=== PATIENT | female | born 1995 | race Caucasian/White ===

== ENCOUNTER 2017-08-22 14:33 | Emergency (ER) | payer OTHER ==
--- NOTE | 2017-08-22 16:10 | ED ---
Throat Pain/Nasal Congestion - HPI Summary HPI Summary: Dental pain Rt upper jaw. Nerve repaired Wednesday w/ temp filling then pain returned . Has been trying advil w/o relief. Has some heat and swelling of cheek - pain worse w/ talking, chewing. Denies fever, chills, N/V/D, neck pain, dysphagia, otalgia. Has been taking PCN since. - History of Current Complaint Chief Complaint: EDDentalPain Time Seen by Provider: 08/22/17 15:05 Hx Obtained From: Patient - Allergies/Home Medications Allergies/Adverse Reactions: Allergies Allergy/AdvReac Type Severity Reaction Status Date / Time No Known Allergies Allergy Verified 08/22/17 14:54 PMH/Surg Hx/FS Hx/Imm Hx Previously Healthy: Yes Endocrine/Hematology History: Reports: Other Endocrine/Hematological Disorders - Diet controlled DM Denies: Hx Diabetes Cardiovascular History: Denies: Hx Hypertension, Hx Pacemaker/ICD Respiratory History: Denies: Hx Asthma History: Reports: Other Problems/Disorders - PCOS Denies: Hx Renal Disease Sensory History: Denies: Hx Hearing Aid Psychiatric History: Denies: Hx Panic Disorder - Surgical History Surgery Procedure, Year, and Place: CYST REMOVED FROM LEFT WRIST 2016 Infectious Disease History: No Infectious Disease History: Denies: Traveled Outside the [place] in Last 30 Days - Family History Known Family History: Positive: Cardiac Disease - paternal, Hypertension - paternal, Diabetes - maternal - Social History Alcohol Use: None Substance Use Type: Reports: None Hx Tobacco Use: No Smoking Status (MU): Never Smoked Tobacco Review of Systems Constitutional: Negative Negative: Fever, Chills, Fatigue Eyes: Negative Negative: Photophobia, Blurred Vision, Diplopia, Drainage, Erythema Positive: Dental Pain. Negative: Epistaxis, Sore Throat, Ear Ache, Nasal Discharge Cardiovascular: Negative Respiratory: Negative Negative: Shortness Of Breath Gastrointestinal: Negative Negative: Abdominal Pain, Vomiting, Diarrhea, Nausea Positive: no symptoms reported Musculoskeletal: Negative Skin: Negative Neurological: Negative Psychological: Normal All Other Systems Reviewed And Are Negative: Yes Physical Exam Triage Information Reviewed: Yes Vital Signs On Initial Exam: Initial Vitals Temp Pulse Resp BP Pulse Ox 98.3 F 63 15 145/71 98 08/22/17 14:50 08/22/17 14:50 08/22/17 14:50 08/22/17 14:50 08/22/17 14:50 Vital Signs Reviewed: Yes Appearance: Positive: Well-Appearing, No Pain Distress, Obese Skin: Positive: Warm - no erythema, no feng edema, no lesions over affected area of face, Skin Color Reflects Adequate Perfusion, Dry Head/Face: Positive: Normal Head/Face Inspection Eyes: Positive: Normal, EOMI - no pain w/ ocular movements, Conjunctiva Clear. Negative: Conjunctiva Inflammed, Discharge ENT: Positive: Normal ENT inspection, Hearing grossly normal, Pharynx normal. Negative: Nasal congestion, Nasal drainage Dental: Positive: Other - buccal mucosa and tissue pink about the Rt posterior molar w/ mild edema/bogginess compared to Lt side of inner mouth/cheek - no erythema, no pustules, no lesions, no drainage observed however tissue is TTP here Neck: Positive: Supple, Nontender, No Lymphadenopathy Respiratory/Lung Sounds: Positive: Clear to Auscultation, Breath Sounds Present. Negative: Stridor, Wheezes Cardiovascular: Positive: Normal, RRR Musculoskeletal: Positive: Normal, Strength/ROM Intact Neurological: Positive: Normal, Sensory/Motor Intact, Alert, Oriented to Person Place, Time, CN Intact II-III Psychiatric: Positive: Normal Diagnostics - Vital Signs Vital Signs Temp Pulse Resp BP Pulse Ox 08/22/17 14:50 98.3 F 63 15 145/71 98 - Laboratory Lab Statement: Any lab studies that have been ordered have been reviewed, and results considered in the medical decision making process. EENT Course/Dx - Course Course Of Treatment: Dental pain w/ recent procedure - pain relieved for 2 days then returned - has been trying to manage on her own with NSAID however no improvement. - Diagnoses Provider Diagnoses: Pain, dental Discharge - Discharge Plan Condition: Stable Disposition: HOME Prescriptions: HYDROcodone/ACETAMIN 5-325 MG* [Drexel 5-325 TAB*] 1 tab PO Q6H PRN #12 tab MDD 4 PRN Reason: Pain Metronidazole [Flagyl 500 MG TAB] 500 mg PO TID #21 tab Patient Education Materials: Dental Abscess (ED) Referrals: Michelle Amato MD [Primary Care Provider] - Additional Instructions: Continue Penicillin by mouth but add flagyl (new antibiotic) - complete course unless dentist advises otherwise. Keep appointment with dentist. You may also continue advil 800mg every 8 hours with food for pain - may use norco if pain is poorly controlled as well *If worse or develop facial swelling, trouble breathing or swallowing, return to ED
[2017-08-22 17:11] VITALS: BP 126/70
== END 2017-08-22 16:45 | disposition home or self-care (01) ==
LOC: ED 14:33
DX: K08.89 Other specified disorders of teeth and supporting structures (principal)
CPT/HCPCS: 99282

== ENCOUNTER 2017-08-29 16:35 | Emergency (ER) | payer OTHER ==
[2017-08-29] MEDS ORDERED: Ibuprofen TAB* 600 MG PO ONE (19:08)
--- NOTE | 2017-08-29 19:12 | UC ---
FLU HPI - HPI Summary HPI Summary: 2 DAYS OF SUBJECTIVE FEVER, CHILLS, FATIGUE, NAUSEA, LOOSE STOOLS, MARIA AND MYALGIAS. NO FLU SHOT THIS SEASON. - History of Current Complaint Chief Complaint: UCGeneralIllness Stated Complaint: COUGH, CONGESTION Time Seen by Provider: 08/29/17 18:56 Hx Obtained From: Patient Hx Last Menstrual Period: 3 weeks Onset/Duration: Gradual Onset, Lasting Days, Still Present Severity Currently: Moderate Severity Initially: Moderate Pain Intensity: 7 Pain Scale Used: 0-10 Numeric Associated Signs & Symptoms: Positive: Fever, Myalgia, Cough, Sore Throat, Nasal Congestion, Headache, Diarrhea - Allergy/Home Medications Allergies/Adverse Reactions: Allergies Allergy/AdvReac Type Severity Reaction Status Date / Time No Known Allergies Allergy Verified 08/29/17 17:38 Home Medications: Home Medications Sertraline* [Zoloft*] 50 mg PO DAILY 08/29/17 [History Confirmed 08/29/17] PMH/Surg Hx/FS Hx/Imm Hx Previously Healthy: Yes - Surgical History Surgical History: Yes Surgery Procedure, Year, and Place: CYST REMOVED FROM LEFT WRIST 2015 - Family History Known Family History: Positive: Cardiac Disease - paternal, Hypertension - paternal, Diabetes - maternal - Social History Alcohol Use: None Substance Use Type: None Smoking Status (MU): Never Smoked Tobacco Review of Systems Constitutional: Fever, Chills, Fatigue ENT: Sore Throat, Ear Ache, Nasal Discharge Respiratory: Cough Cardiovascular: Negative Gastrointestinal: Diarrhea, Nausea Musculoskeletal: Myalgia Neurological: Headache All Other Systems Reviewed And Are Negative: Yes Physical Exam Triage Information Reviewed: Yes Appearance: No Pain Distress, Well-Nourished, Ill-Appearing - MOD Vital Signs: Initial Vital Signs Temp 100.6 F 08/29/17 17:33 Pulse 93 08/29/17 17:33 Resp 18 08/29/17 17:33 BP 135/76 08/29/17 17:33 Pulse Ox 94 08/29/17 17:33 Vital Signs Reviewed: Yes Eyes: Positive: Conjunctiva Clear ENT: Positive: Hearing grossly normal, Pharynx normal, TMs normal Neck: Positive: Supple, Nontender, No Lymphadenopathy Respiratory Exam: Normal Cardiovascular: Positive: Tachycardia Abdomen Description: Positive: Nontender, Soft Musculoskeletal: Positive: No Edema Neurological: Positive: Alert Psychological: Positive: Age Appropriate Behavior Skin: Negative: rashes Diagnostics - Laboratory Diagnostic Studies Completed/Ordered: SWAB POSITIVE INFLUENZA A Flu Course/Dx - Differential Dx/Diagnosis Provider Diagnoses: INFLUENZA A Discharge - Discharge Plan Condition: Stable Disposition: HOME Prescriptions: Oseltamivir CAP* [Tamiflu CAP*] 75 mg PO BID #10 cap Patient Education Materials: Influenza (ED) Forms: *Work Release Referrals: Michelle Amato MD [Primary Care Provider] - If Needed Additional Instructions: SWAB POSITIVE FOR INFLUENZA A. TAMIFLU TWICE DAILY FOR 5 DAYS. OTC MEDS NEEDED FOR FEVER, BODY ACHES. STAY WELL HYDRATED AND RESTED. SEEK FOLLOW-UP IF YOU ARE NOT IMPROVING EXPECTED.
[2017-08-29 19:16] VITALS: BP 145/63
== END 2017-08-29 19:56 | disposition home or self-care (01) ==
LOC: UCEAST 16:35
DX: J09.X2 Influenza due to identified novel influenza A virus with other respiratory manifestations (principal)
CPT/HCPCS: 87502; 99212; A9270-GY; G0463

== ENCOUNTER 2018-01-19 08:07 | Emergency (ER) | payer OTHER ==
--- NOTE | 2018-01-19 10:08 | UC ---
Skin Complaint HPI - HPI Summary HPI Summary: Developed painful irritated taste buds on the tip of her tongue about 2 weeks ago that has been persistent. She denies any fever, nausea or trauma to the area. No history of oral or genital herpes. She denies any high risk sexual activity. - History of Current Complaint Chief Complaint: UCGI Time Seen by Provider: 01/19/18 09:49 Stated Complaint: MOUTH PAIN Hx Obtained From: Patient Hx Last Menstrual Period: 3 weeks Onset/Duration: Sudden Onset, Lasting Weeks, Still Present Onset Severity: Moderate Current Severity: Moderate Pain Intensity: 8 Pain Scale Used: 0-10 Numeric Character: Pain, Raised Aggravating Factor(s): Touch Alleviating Factor(s): Nothing Associated Signs & Symptoms: Positive: Negative - Allergy/Home Medications Allergies/Adverse Reactions: Allergies Allergy/AdvReac Type Severity Reaction Status Date / Time No Known Allergies Allergy Verified 01/19/18 08:16 Home Medications: Home Medications Fluoxetine HCl [Prozac] 40 mg PO 01/19/18 [History] Review of Systems Constitutional: Negative Skin: Other - TENDER, ENLARGED TASTEBUDS Respiratory: Negative Cardiovascular: Negative Gastrointestinal: Negative All Other Systems Reviewed And Are Negative: Yes PMH/Surg Hx/FS Hx/Imm Hx Psychological History: Anxiety, Depression - Surgical History Surgical History: Yes Surgery Procedure, Year, and Place: CYST REMOVED FROM LEFT WRIST 2016 - Family History Known Family History: Positive: Cardiac Disease - paternal, Hypertension - paternal, Diabetes - maternal - Social History Alcohol Use: None Substance Use Type: None Smoking Status (MU): Never Smoked Tobacco Physical Exam Triage Information Reviewed: Yes Appearance: Well-Appearing, No Pain Distress, Well-Nourished Vital Signs: Initial Vital Signs Temp 98.3 F 01/19/18 08:10 Pulse 79 01/19/18 08:10 Resp 18 01/19/18 08:10 BP 122/81 01/19/18 08:10 Pulse Ox 100 01/19/18 08:10 Vital Signs Reviewed: Yes Eyes: Positive: Conjunctiva Clear ENT: Positive: Hearing grossly normal, Pharynx normal, Other - TONGUE WITH TENDER, IRRITATED FUNGIFORM PAPILLAE Neck: Positive: Supple, Nontender, No Lymphadenopathy Respiratory: Positive: No respiratory distress, No accessory muscle use Cardiovascular: Positive: Pulses Normal Abdomen Description: Positive: Soft Musculoskeletal: Positive: No Edema Neurological: Positive: Alert Psychological: Positive: Age Appropriate Behavior Skin: Negative: rashes Course/Dx - Diagnoses Provider Diagnoses: TRANSIENT LINGUAL PAPILLITIS Discharge - Sign-Out/Discharge Documenting (check all that apply): Discharge/Admit/Transfer - Discharge Plan Condition: Stable Disposition: HOME Prescriptions: Chlorhexidine MW 0.12% 473ML* [Peridex Mouth Wash 0.12%*] 15 ml SWISH SPIT BID # 1 bottle Referrals: Michelle Amato MD [Primary Care Provider] - If Needed Additional Instructions: POSSIBLE TRANSIENT LINGUAL PAPILLITIS. SWAB TAKEN TO RULE OUT HERPES. RINSE WITH WATER AFTER EATING AND AVOID ACIDIC, SPICY, IRRITATING FOODS. USE THE ANTISEPTIC MOUTH RINSE TWICE DAILY FOR A FEW DAYS TO SEE IF THAT HELPS. CALL DERMATOLOGY TODAY FOR A FOLLOW-UP APPOINTMENT. [place]. CARMEN VALERIO [facility], [facility] [address]; [address] [place] [address] Dr. Candi Grissomister Address: [address] [place] [address] [address] [place] [address] DR[facility] [address] [place] [address] [facility] Merline Espinal DERMATOLOGY IN [place] DR. CLAYTON JEFFERY [phone] - Billing Disposition and Condition Condition: STABLE Disposition: Home
[2018-01-19 10:23] VITALS: BP 151/70
== END 2018-01-19 10:21 | disposition home or self-care (01) ==
LOC: UCEAST 08:07
DX: K14.0 Glossitis (principal); F41.9 Anxiety disorder, unspecified; F32.9 Major depressive disorder, single episode, unspecified; Z79.899 Other long term (current) drug therapy
CPT/HCPCS: 87529; 87798; 99212; G0463

== ENCOUNTER 2018-07-03 22:09 | Emergency (ER) | payer OTHER ==
--- NOTE | 2018-07-03 23:40 | ED ---
Lower Extremity - HPI Summary HPI Summary: This patient is a 23 year old F presenting to [facility] with a chief complaint of right knee pain that has gotten worse. Pt states that she fell on her knee two weeks ago, saw PCP, received xray, and diagnosed with a contusion. In her return instructions she was told to return with worsening pain and she states her pain has increased. The patient rates the pain 6/10 in severity and states it radiates down to the ankle. She states her knee gives out when she walks. She is requesting immobilizer - History of Current Complaint Chief Complaint: EDExtremityLower Stated Complaint: KNEE PAIN Time Seen by Provider: 07/03/18 23:34 Hx Obtained From: Patient Hx Last Menstrual Period: 3 weeks Mechanism Of Injury: Fall From A Standing Position Onset of Pain: Immediate Onset/Duration: Weeks Severity Initially: Mild Severity Currently: Moderate Pain Intensity: 6 Pain Scale Used: 0-10 Numeric Timing: Constant Location: Is Discrete @ - R knee Associated Signs And Symptoms: Negative: Swelling, Fever Able to Bear Weight: Yes - Allergies/Home Medications Allergies/Adverse Reactions: Allergies Allergy/AdvReac Type Severity Reaction Status Date / Time No Known Allergies Allergy Verified 01/19/18 08:16 PMH/Surg Hx/FS Hx/Imm Hx Endocrine/Hematology History: Reports: Other Endocrine/Hematological Disorders - Diet controlled DM Denies: Hx Diabetes Cardiovascular History: Denies: Hx Hypertension, Hx Pacemaker/ICD Respiratory History: Denies: Hx Asthma History: Reports: Other Problems/Disorders - PCOS Denies: Hx Renal Disease Sensory History: Denies: Hx Hearing Aid Psychiatric History: Denies: Hx Panic Disorder - Surgical History Surgery Procedure, Year, and Place: CYST REMOVED FROM LEFT WRIST 2016 Infectious Disease History: No Infectious Disease History: Denies: Traveled Outside the [place] in Last 30 Days - Family History Known Family History: Positive: Cardiac Disease - paternal, Hypertension - paternal, Diabetes - maternal - Social History Alcohol Use: None Substance Use Type: Reports: None Hx Tobacco Use: No Smoking Status (MU): Never Smoked Tobacco Review of Systems Negative: Fever Positive: Other - knee pain and altered gait All Other Systems Reviewed And Are Negative: Yes Physical Exam - Summary Physical Exam Summary: VITAL SIGNS: Reviewed. GENERAL: Patient is a well-developed and nourished female who is lying comfortable in the stretcher. Patient is not in any acute respiratory distress. HEAD AND FACE: No signs of trauma. No ecchymosis, hematomas or skull depressions. No sinus tenderness. EYES: PERRLA, EOMI x 2, No injected conjunctiva, no nystagmus. EARS: Hearing grossly intact. Ear canals and tympanic membranes are within normal limits. MOUTH: Oropharynx within normal limits. NECK: Supple, trachea is midline, no adenopathy, no JVD, no carotid bruit, no c- spine tenderness, neck with full ROM. CHEST: Symmetric, no tenderness at palpation LUNGS: Clear to auscultation bilaterally. No wheezing or crackles. CVS: Regular rate and rhythm, S1 and S2 present, no murmurs or gallops appreciated. ABDOMEN: Soft, non-tender. No signs of distention. No rebound no guarding, and no masses palpated. Bowel sounds are normal. EXTREMITIES: FROM in all major joints, no edema, no cyanosis or clubbing.TTP over the right lateral knee. No swelling, good ROM. NEURO: Alert and oriented x 3. No acute neurological deficits. Speech is normal and follows commands. SKIN: Dry and warm Triage Information Reviewed: Yes Vital Signs On Initial Exam: Initial Vitals Temp Pulse Resp BP Pulse Ox 98.4 F 83 20 141/88 99 07/03/18 22:11 07/03/18 22:11 07/03/18 22:11 07/03/18 22:11 07/03/18 22:11 Vital Signs Reviewed: Yes Diagnostics - Vital Signs Vital Signs Temp Pulse Resp BP Pulse Ox 07/03/18 22:11 98.4 F 83 20 141/88 99 - Laboratory Lab Statement: Any lab studies that have been ordered have been reviewed, and results considered in the medical decision making process. Lower Extremity Course/Dx - Course Assessment/Plan: This patient is a 23 year old F presenting to [facility] with a chief complaint of right knee pain that has gotten worse. Pt states that she fell on her knee two weeks ago, saw PCP, received xray, and diagnosed with a contusion. In her return instructions she was told to return with worsening pain and she states her pain has increased. The patient rates the pain 6/10 in severity and states it radiates down to the ankle. She states her knee gives out when she walks. She is requesting immobilizer. Patient will be discharged with a knee immobilizer and an ortho f/u. she also has a PCP appointment in a week. The patient is agreeable with this plan. - Diagnoses Provider Diagnoses: Knee pain Discharge - Sign-Out/Discharge Documenting (check all that apply): Patient Departure - Discharge Plan Condition: Stable Disposition: HOME Patient Education Materials: Knee Pain (ED) Referrals: Michelle Amato MD [Primary Care Provider] - Margaret Lawson MD [Medical Doctor] - As Soon As Possible Additional Instructions: RETURN TO THE EMERGENCY DEPARTMENT FOR CHANGING OR WORSENING SYMPTOMS - Attestation Statements Document Initiated by Scribe: Yes Documenting Scribe: Albert Manjarrez Provider For Whom Scribe is Documenting (Include Credential): Ann Escobar MD Scribe Attestation: IAlbert , scribed for Ann Escobar MD on 07/03/18 at 2346. Status of Scribe Document: Ready
[2018-07-04 00:54] VITALS: BP 107/66
== END 2018-07-04 00:52 | disposition home or self-care (01) ==
LOC: ED 22:09
DX: M25.561 Pain in right knee (principal); R26.89 Other abnormalities of gait and mobility
CPT/HCPCS: 99282

== ENCOUNTER 2018-07-27 11:21 | Emergency (ER) | payer OTHER ==
[2018-07-27 11:47] VITALS: BP 151/82
--- NOTE | 2018-07-27 12:46 | ED ---
Throat Pain/Nasal Congestion - HPI Summary HPI Summary: 23 yo WF presents with sore throat radiating to right ear x 2 days. Pain is sharp and worsening associated with chills. Has had many ea infections as a child. - History of Current Complaint Chief Complaint: UCGeneralIllness Time Seen by Provider: 07/27/18 11:32 Hx Obtained From: Patient Onset/Duration: Sudden Onset, Lasting Days Severity: Moderate Associated Signs And Symptoms: Positive: Negative Cough: None - Allergies/Home Medications Allergies/Adverse Reactions: Allergies Allergy/AdvReac Type Severity Reaction Status Date / Time No Known Allergies Allergy Verified 07/27/18 11:48 PMH/Surg Hx/FS Hx/Imm Hx Previously Healthy: Yes Endocrine/Hematology History: Reports: Other Endocrine/Hematological Disorders - Diet controlled DM Denies: Hx Diabetes, Hx Thyroid Disease Cardiovascular History: Denies: Hx Hypertension, Hx Pacemaker/ICD Respiratory History: Denies: Hx Asthma, Hx Chronic Obstructive Pulmonary Disease (COPD) GI History: Denies: Hx Ulcer History: Reports: Other Problems/Disorders - PCOS Denies: Hx Renal Disease Sensory History: Denies: Hx Hearing Aid Psychiatric History: Denies: Hx Panic Disorder - Surgical History Surgery Procedure, Year, and Place: CYST REMOVED FROM LEFT WRIST 2016 Infectious Disease History: Yes Infectious Disease History: Denies: Hx Hepatitis, Hx Human Immunodeficiency Virus (HIV), Traveled Outside the [place] in Last 30 Days - Family History Known Family History: Positive: Cardiac Disease - paternal, Hypertension - paternal, Diabetes - maternal - Social History Alcohol Use: Rare Substance Use Type: Reports: Marijuana Hx Tobacco Use: No Smoking Status (MU): Never Smoked Tobacco Review of Systems Positive: Chills Eyes: Negative Positive: Sore Throat, Ear Ache Cardiovascular: Negative Respiratory: Negative Gastrointestinal: Negative Genitourinary: Negative Musculoskeletal: Negative Skin: Negative Neurological: Negative Psychological: Normal All Other Systems Reviewed And Are Negative: Yes Physical Exam - Summary Physical Exam Summary: Vital Signs Reviewed: Yes Skin: Positive: Warm Head/Face: Positive: Normal Head/Face Inspection Eyes: Positive: Normal ENT: Positive: B/L Tm erythema,RIGHT post auricular LN tenderness R>L, pharyngeal erythema w/o exudates Neck: Positive: Supple Respiratory/Lung Sounds: Positive: Clear to Auscultation Cardiovascular: Positive: Normal, RRR, S1, S2 Abdomen Description: Positive: Nontender Musculoskeletal: Positive: Normal Neurological: Positive: Normal Psychiatric: Positive: Normal, Affect/Mood Appropriate Vital Signs On Initial Exam: Initial Vitals Temp Pulse Resp BP Pulse Ox 36.9 C 88 20 151/82 100 07/27/18 11:43 07/27/18 11:43 07/27/18 11:43 07/27/18 11:43 07/27/18 11:43 Diagnostics - Vital Signs Vital Signs Temp Pulse Resp BP Pulse Ox 07/27/18 11:43 36.9 C 88 20 151/82 100 - Laboratory Lab Results: Lab Results 07/27/18 Range/Units 12:06 Group A Strep Rapid Negative (Negative) Lab Statement: Any lab studies that have been ordered have been reviewed, and results considered in the medical decision making process. EENT Course/Dx - Course Assessment/Plan: otitis media- Augmentin as directed- to take if ear pain worsene in 48 hrs. pharyngitis- rapid strep neg - Diagnoses Provider Diagnoses: Middle ear infection, Pharyngitis Discharge - Sign-Out/Discharge Documenting (check all that apply): Patient Departure All imaging exams completed and their final reports reviewed: Yes - Discharge Plan Condition: Stable Disposition: HOME Prescriptions: Amoxicillin/Clavulanate TAB* [Augmentin TAB 875*] 875 mg PO BID 7 Days #14 tab Patient Education Materials: Ear Infection (ED) Referrals: Michelle Amato MD [Primary Care Provider] - - Billing Disposition and Condition Condition: STABLE Disposition: Home
== END 2018-07-27 12:56 | disposition home or self-care (01) ==
LOC: UCEAST 11:21
DX: J02.9 Acute pharyngitis, unspecified (principal); H66.91 Otitis media, unspecified, right ear
CPT/HCPCS: 87651; 99212; G0463

== ENCOUNTER 2018-10-11 21:12 | Emergency (ER) | payer OTHER ==
[2018-10-11 21:21] VITALS: BP 155/94
[2018-10-11] MEDS ORDERED: Amoxicillin PO (*) 500 MG CAP PO ONE (21:47)
--- NOTE | 2018-10-11 21:59 | UC ---
Ear Complaint HPI - HPI Summary HPI Summary: 1 week of URI symptoms. Today developed left ear pain. No drainage from the ear or hearing loss. No fever. Is also concerned because she had a free urine test at work today and was told she had blood in her urine. No dysuria or urinary frequency. Has random intermittent back pain. - History of Current Complaint Chief Complaint: UCEar Stated Complaint: SINUS CONGESTION, EAR ACHE, AND BLOOD IN URINE Time Seen by Provider: 10/11/18 21:21 Hx Obtained From: Patient Hx Last Menstrual Period: 09/19/18 Onset/Duration: Gradual Onset, Lasting Days, Still Present Severity Initially: Moderate Severity Currently: Moderate Pain Intensity: 8 Pain Scale Used: 0-10 Numeric Aggravating Factors: Nothing Alleviating Factors: Nothing Associated Signs/Symptoms: Positive: URI Symptoms. Negative: Discharge, Hearing Loss - Allergies/Home Medications Allergies/Adverse Reactions: Allergies Allergy/AdvReac Type Severity Reaction Status Date / Time No Known Allergies Allergy Verified 10/11/18 21:21 Home Medications: Home Medications ARIPiprazole TAB* [Abilify TAB*] 5 mg PO DAILY 10/11/18 [History Confirmed 07/20] Congestion Med* PRN 10/11/18 [History] Med For Sleep* PO BEDTIME 10/11/18 [History] PMH/Surg Hx/FS Hx/Imm Hx Previously Healthy: Yes - Surgical History Surgical History: Yes Surgery Procedure, Year, and Place: CYST REMOVED FROM LEFT WRIST 2015 - Family History Known Family History: Positive: Cardiac Disease - paternal, Hypertension - paternal, Diabetes - maternal - Social History Alcohol Use: Rare Substance Use Type: None Smoking Status (MU): Never Smoked Tobacco Review of Systems All Other Systems Reviewed And Are Negative: Yes Constitutional: Positive: Negative ENT: Positive: Ear Ache, Nasal Discharge Respiratory: Positive: Cough Cardiovascular: Positive: Negative Gastrointestinal: Positive: Negative Physical Exam Triage Information Reviewed: Yes Appearance: Well-Appearing, No Pain Distress, Well-Nourished Vital Signs: Initial Vital Signs Temp 96.4 F 10/11/18 21:15 Pulse 87 10/11/18 21:15 Resp 18 10/11/18 21:15 BP 155/94 10/11/18 21:15 Pulse Ox 100 10/11/18 21:15 Laboratory Tests 10/11/18 21:38 POC Urine Color Yellow POC Urine Clarity Clear POC Urine pH 7.5 POC Ur Specif [place] 1.020 POC Urine Protein Trace A POC Ur Glucose (UA) Negative POC Urine Ketones Negative POC Urine Blood Negative POC Urine Nitrite Negative POC Urine Bilirubin Negative POC Urine Urobilinogen 0.2 POC U Leukocyte Esteras Negative Vital Signs Reviewed: Yes Eyes: Positive: Conjunctiva Clear ENT: Positive: Hearing grossly normal, Pharynx normal, TM red - LEFT Neck: Positive: Supple, Nontender, No Lymphadenopathy Respiratory Exam: Normal Cardiovascular Exam: Normal Abdomen Description: Positive: Soft Musculoskeletal: Positive: No Edema Neurological: Positive: Alert Psychological: Positive: Age Appropriate Behavior Skin: Negative: Rashes Ear Complaint Course/Dx - Differential Dx/Diagnosis Provider Diagnosis: Otitis media, left Discharge - Sign-Out/Discharge Documenting (check all that apply): Patient Departure All imaging exams completed and their final reports reviewed: No Studies - Discharge Plan Condition: Stable Disposition: HOME Prescriptions: Amoxicillin PO (*) [Amoxicillin 500 MG CAP*] 1,000 mg PO Q12H #38 cap Patient Education Materials: Ear Infection (ED) Forms: *Gen. Provider Communication Referrals: Michelle Amato MD [Primary Care Provider] - If Needed Additional Instructions: TAKE ANTIBIOTICS FOR THE FULL 10 DAYS FOR YOUR EAR INFECTION. YOUR URINE SAMPLE TODAY HAD NO BLOOD IN IT BUT DID HAVE TRACE PROTEIN. RECOMMEND YOU FOLLOW-UP WITH YOUR PCP IN A COUPLE OF WEEKS FOR REPEAT CHECK OF YOUR URINE. IF IT IS ABNORMAL FOLLOW-UP WITH UROLOGY. STAY WELL HYDRATED. [facility] - Billing Disposition and Condition Condition: STABLE Disposition: Home
== END 2018-10-11 21:57 | disposition home or self-care (01) ==
LOC: UCEAST 21:12
DX: H66.92 Otitis media, unspecified, left ear (principal)
CPT/HCPCS: 81003; 99212; A9270-GY; G0463

== ENCOUNTER 2018-10-12 14:29 | Emergency (ER) | payer OTHER ==
--- NOTE | 2018-10-12 16:40 | UC ---
Throat Pain/Nasal Mian HPI - HPI Summary HPI Summary: HAS HAD URI FOR ABOUT A WEEK. NO FEVER. WAS SEEN HERE LAST NIGHT AND DIAGNOSED WITH A MILD LEFT OTITIS MEDIA. WAS PLACED ON AMOXICILLIN TWICE DAILY FOR 10 DAYS BUT HAS NOT YET FILLED THIS MEDICATION. PATIENT STATES SHE WOKE UP TODAY WITH A VERY SORE, RED THROAT AND THOUGHT SHE SAW WHITE SPOTS. HAS A HISTORY OF TONSILLECTOMY. - History of Current Complaint Chief Complaint: UCGeneralIllness Stated Complaint: SORE THROAT Time Seen by Provider: 10/12/18 15:56 Hx Obtained From: Patient Hx Last Menstrual Period: 09/19/18 Onset/Duration: Sudden Onset, Lasting Hours, Still Present Severity: Moderate Pain Intensity: 6 Pain Scale Used: 0-10 Numeric Cough: Nonproductive Associated Signs & Symptoms: Negative: Wheezing, Fever, Vomiting - Allergies/Home Medications Allergies/Adverse Reactions: Allergies Allergy/AdvReac Type Severity Reaction Status Date / Time No Known Allergies Allergy Verified 10/12/18 14:44 Home Medications: Home Medications hydrOXYzine HCL TAB* [Atarax 25 MG TAB*] 25 mg PO BEDTIME 10/12/18 [History Confirmed 10/12/18] PMH/Surg Hx/FS Hx/Imm Hx Previously Healthy: Yes - Surgical History Surgical History: Yes Surgery Procedure, Year, and Place: CYST REMOVED FROM LEFT WRIST 2015 - Family History Known Family History: Positive: Cardiac Disease - paternal, Hypertension - paternal, Diabetes - maternal - Social History Alcohol Use: Rare Substance Use Type: None Smoking Status (MU): Never Smoked Tobacco Review of Systems All Other Systems Reviewed And Are Negative: Yes Constitutional: Positive: Negative ENT: Positive: Sore Throat, Ear Ache, Nasal Discharge Respiratory: Positive: Cough Cardiovascular: Positive: Negative Gastrointestinal: Positive: Negative Physical Exam Triage Information Reviewed: Yes Appearance: Well-Appearing, No Pain Distress, Well-Nourished Vital Signs: Initial Vital Signs Temp 97.3 F 10/12/18 14:39 Pulse 92 10/12/18 14:39 Resp 18 10/12/18 14:39 BP 122/80 10/12/18 14:39 Pulse Ox 99 10/12/18 14:39 Laboratory Tests 10/12/18 17:00 Group A Strep Rapid Negative Vital Signs Reviewed: Yes Eyes: Positive: Conjunctiva Clear ENT: Positive: Hearing grossly normal, Pharynx normal, TM red - LEFT. Negative : TM bulging, TM dull Neck: Positive: Supple, Nontender, No Lymphadenopathy Respiratory Exam: Normal Cardiovascular Exam: Normal Abdomen Description: Positive: Soft Musculoskeletal: Positive: No Edema Neurological: Positive: Alert Psychological: Positive: Age Appropriate Behavior Skin: Negative: Rashes Throat Pain/Nasal Course/Dx - Differential Dx/Diagnosis Provider Diagnosis: Acute pharyngitis Discharge - Sign-Out/Discharge Documenting (check all that apply): Patient Departure All imaging exams completed and their final reports reviewed: No Studies - Discharge Plan Condition: Stable Disposition: HOME Patient Education Materials: Pharyngitis (ED) Referrals: Michelle Amato MD [Primary Care Provider] - If Needed Additional Instructions: STREP TEST NEGATIVE. YOUR SYMPTOMS ARE LIKELY VIRALLY MEDIATED AND SHOULD RESOLVE ON THEIR OWN WITH TIME. NO INDICATION FOR ANTIBIOTICS AT PRESENT HOWEVER YOU MAY FILL THE AMOXICILLIN YOU WERE PRESCRIBED FOR YOUR EAR INFECTION IF YOUR SYMPTOMS PERSIST. IF YOU START THE MEDICINE BE SURE TO TAKE IT FOR THE FULL 10 DAYS. REST, HYDRATE, OTC MEDS NEEDED. SEEK FOLLOW-UP IF YOU ARE NOT IMPROVING OVER THE NEXT 1-2 WEEKS. - Billing Disposition and Condition Condition: STABLE Disposition: Home
[2018-10-12 17:24] VITALS: BP 120/85
== END 2018-10-12 17:18 | disposition home or self-care (01) ==
LOC: UCEAST 14:29
DX: J02.9 Acute pharyngitis, unspecified (principal); H66.92 Otitis media, unspecified, left ear; Z90.89 Acquired absence of other organs
CPT/HCPCS: 87651; 99211; G0463